=== PATIENT | female | born 1960 | race Caucasian/White ===

== ENCOUNTER 2017-03-27 10:11 | Emergency (ER) | payer OTHER ==
[~2017-03-27] VITALS: Ht 170.2 cm; Wt 72.6 kg
--- NOTE | 2017-03-27 10:42 | PHYS DOC ---
Past History Past Medical History: Endometriosis, High Cholesterol Past Surgical History: Other Smoking: Non-smoker Alcohol Use: None Drug Use: None Adult General Chief Complaint Chief Complaint: KNEE SWELLING HPI HPI 57-year-old female patient with history of varicose vein states she injured her left knee one week ago with mild edema and ecchymosis that getting force this morning and she is concern for possible blood clot or collapsing vein. Patient denies new injury, focal neuro deficit, fever and chills, shortness of breath, edema, recent immobilization, history of DVT and PE walking problem. Review of Systems Review of Systems Constitutional: Denies fever or chills [] Eyes: Denies change in visual acuity, redness, or eye pain [] HENT: Denies nasal congestion or sore throat [] Respiratory: Denies cough or shortness of breath [] Cardiovascular: No additional information not addressed in HPI [] GI: Denies abdominal pain, nausea, vomiting, bloody stools or diarrhea [] : Denies dysuria or hematuria [] Musculoskeletal: Denies back pain, reports joint pain [] Integument: Denies rash, reports ecchymoses[] Neurologic: Denies headache, focal weakness or sensory changes [] Endocrine: Denies polyuria or polydipsia [] All other systems were reviewed and found to be within normal limits, except as documented in this note. Allergies Allergies Allergies Coded Allergies Type Severity Reaction Last Updated Verified Sulfa (Sulfonamide Antibiotics) Allergy Unknown 03/27/17 Yes amoxicillin Allergy Unknown 03/27/17 Yes clavulanic acid Allergy Unknown 03/27/17 Yes Physical Exam Physical Exam Constitutional: Well developed, well nourished, no acute distress, non-toxic appearance, mildly anxious. [] HENT: Normocephalic, atraumatic, bilateral external ears normal, oropharynx moist, no oral exudates, nose normal. [] Eyes: PERRLA, EOMI, conjunctiva normal, no discharge. [] Neck: Normal range of motion, no tenderness, supple, no stridor. [] Cardiovascular:Heart rate regular rhythm, no murmur [] Lungs & Thorax: Bilateral breath sounds clear to auscultation []. [] Skin: Warm, dry, no erythema, no rash. [] Back: No tenderness, no CVA tenderness. [] Extremities: Left knee week 2 x 2 centimeter area of old contusion and edema without point of tenderness or focal neuro deficit, mild superficial varicose vein without acute bleeding Neurologic: Alert and oriented X 3, normal motor function, normal sensory function, no focal deficits noted. [] Psychologic: anxious, judgement normal, mood normal. [] Current Patient Data Vital Signs Vital Signs Date Time Temp Pulse Resp B/P (MAP) Pulse Ox O2 Delivery O2 Flow Rate FiO2 03/27/17 10:20 98.3 88 16 99 Room Air EKG EKG [] Radiology/Procedures Radiology/Procedures [] Course & Med Decision Making Course & Med Decision Making Evolution of patient in ER showed 57-year-old female patient with injury to left knee that getting force today. Patient had old ecchymosis and contusion without acute finding. Praveen wrap applied by [facility] and patient felt better. She was concern for possible blood clot and informed that she does not have blood clots at this time. Dragon Disclaimer Dragon Disclaimer This electronic medical record was generated, in whole or in part, using a voice recognition dictation system. Departure Departure: Impression: Primary Impression: Contusion of left knee Disposition: HOME, SELF-CARE (at 1041) Condition: STABLE Referrals: TIARA SCHMIDT (PCP) Patient Instructions: Contusion Additional Instructions: Apply ice on the affected area Follow-up with your primary care physician in 3-5 days Return to ER if not getting better SONU DORSEY MD Mar 27, 2017 10:41
[2017-03-27 10:46] VITALS: BP 127/78
== END 2017-03-27 10:50 | disposition home or self-care (01) ==
LOC: ER 10:11
DX: S80.02XA Contusion of left knee, initial encounter (principal); E78.00 Pure hypercholesterolemia, unspecified; Z88.2 Allergy status to sulfonamides; Z88.1 Allergy status to other antibiotic agents; X58.XXXA Exposure to other specified factors, initial encounter; Y93.89 Activity, other specified; Y99.8 Other external cause status; Y92.89 Other specified places as the place of occurrence of the external cause
CPT/HCPCS: 99282

== ENCOUNTER 2019-01-26 11:12 | Inpatient (IN) | payer OTHER ==
[~2019-01-26] VITALS: Ht 170.2 cm; Wt 69.7 kg
[2019-01-26 11:00] VITALS: BP 147/72
[2019-01-26 11:41] VITALS: BP_DIAS 72
[2019-01-26] MEDS ORDERED: [UNRECOGNIZED DRUG - REMARK] PO (11:53)
[2019-01-26 12:10] LABS: INFLUENZA A PATIENT POSITIVE (NEGATIVE); INFLUENZA B PATIENT NEGATIVE (NEGATIVE)
[2019-01-26] MEDS ORDERED: ZOLPIDEM 5 MG TABLET. PO PRN (12:15)
[2019-01-26] MEDS ORDERED: ACETAMINOPHEN 500 MG TABLET PO PRN (12:15)
[2019-01-26] MEDS ORDERED: MAG HYDROX/AL HYDROX/SIMETH 30 ML ORAL.SUSP PO PRN (12:15)
--- NOTE | 2019-01-26 12:32 | NUR ---
Pt arrived on at approximately 1057 via wheelchair for possible pneumonia and acute respiratory distress. Vital Signs 98.9, 147/72, pulse 91, RR 24-, O2 RA 95%. Pt denies any pain at this time, Pt family at bedside, droplet precautions in place. Swabbed pt for influenza, awaiting results. Bed in lowest position, call light within reach. 22 g IV placed SL. Pt complains of chest tightness and SOB, will continue to assess and treat as prescribed. Pt is up ad melissa, no hx of falls. Pt instructed to call for any assistance. Regular diet ordered. Full Code status.
[2019-01-26 12:39] LABS: BASO % 0 % (0-3); EOS % 0 % (0-3); HEMATOCRIT 40.9 % (36.0-47.0); HEMOGLOBIN 13.5 g/dL (12.0-15.5); LYMPH # 0.4 x10^3/uL (1.0-4.8); LYMPH % 6 % (24-48); MEAN CORPUSCULAR HEMOGLOBIN 30 pg (25-35); MEAN CORPUSCULAR HGB CONC 33 g/dL (31-37); MEAN CORPUSCULAR VOLUME 92 fL (79-100); MONO # 0.7 x10^3/uL (0.0-1.1); MONO % 11 % (0-9); NEUT # 5.4 x10^3uL (1.8-7.7); NEUT % 83 % (31-73); PLATELET COUNT 234 x10^3/uL (140-400); RED BLOOD COUNT 4.47 x10^6/uL (3.50-5.40); RED CELL DISTRIBUTION WIDTH 13.8 % (11.5-14.5); WHITE BLOOD COUNT 6.6 x10^3/uL (4.0-11.0)
[2019-01-26] MEDS: guaiFENesin DM 200MG/20MG 10 ML SYRUP PO PRN ×2 (12:47→22:09)
[2019-01-26] MEDS: IV 1/2 NORMAL SALINE 1,000 ML IV SCH (12:50)
[2019-01-26 12:53] LABS: ALBUMIN 3.4 g/dL (3.4-5.0); ALBUMIN/GLOBULIN RATIO 0.8 (1.0-1.7); CALCIUM 8.2 mg/dL (8.5-10.1); CREATININE 0.8 mg/dL (0.6-1.0); GFR 73.4; POTASSIUM 3.5 mmol/L (3.5-5.1); TOTAL BILIRUBIN 0.3 mg/dL (0.2-1.0); TOTAL PROTEIN 7.5 g/dL (6.4-8.2)
[2019-01-26] MEDS: ONDANSETRON ODT 4 MG TAB.RAPDIS PO PRN (14:18)
[2019-01-26] MEDS: methylPREDNISolone SOD SUCC PF 125 MG/2 ML VIAL. IV SCH ×2 (14:18→20:27)
[2019-01-26] MEDS: IPRATRPIUM/ALBUTEROL 0.5/2.5MG 3 ML NEBU. NEB SCH ×2 (15:04→20:23)
[2019-01-26] MEDS ORDERED: IOHEXOL 350 MG/ML 100 ML VIAL. IV ONE (15:15)
--- NOTE | 2019-01-26 15:32 | NUR ---
Pt positive for Influenza strand A, droplet precautions implemented, pt receiving meds per 's orders. Pt vomitted at 1400, gave PRN Zofran as prescribed.
--- NOTE | 2019-01-26 15:34 | EKG ---
[address] [address] Test Date: 2019-01-26 Test Time: 16:04:40 Pat Name: CHIDI CASTRO Department: Room: 111 A Gender: F Dopeman: : 1960 Requested By: DAGOBERTO BAL Order Number: [id number] Reading MD: Measurements Intervals [place] Rate: 86 P: 42 CT: 136 QRS: 40 QRSD: 94 T: 41 QT: 344 QTc: 414 Interpretive Statements SINUS RHYTHM QRS(T) CONTOUR ABNORMALITY CONSISTENT WITH ANTEROSEPTAL INFARCT PROBABLY OLD ABNORMAL ECG RI6.02 No previous ECG available for comparison
--- NOTE | 2019-01-26 15:52 | RAD ---
Abdominal ultrasound without comparison for elevated LFTs. Technique and findings: Real-time grayscale and color Doppler evaluation of the abdominal organs is performed. The IVC is patent. Visualized portions of the abdominal aorta are not aneurysmal. Portal vein is patent and hepatopedal. The liver measures 17.4 cm and is free of any focal parenchymal abnormalities. No intra or extrahepatic biliary ductal dilatation. The gallbladder is contracted and notable for shadowing gallstones. No gallbladder wall thickening or pericholecystic fluid. No sonographic Maldonado sign. Common bile duct measures 5 mm in diameter. Visualized portions the pancreas are grossly unremarkable. The pancreatic tail is not well seen. The right kidney measures 11.7 x 5.5 x 4.3 cm and the left measures 11.1 x 5.4 x 6.0 cm. There is no hydronephrosis or parenchymal abnormality involving either kidney. There is normal color flow to both kidneys. Spleen is normal in size and appearance. IMPRESSION: 1. Cholelithiasis without sonographic evidence of acute cholecystitis. Electronically signed by: Frederic Quintero MD (01/26/2019 3:50 PM) [facility]
[2019-01-26] MEDS ORDERED: SIMV20TA18 PO (15:53)
[2019-01-26 16:07] VITALS: BP 115/65
--- NOTE | 2019-01-26 16:20 | RAD ---
PA and lateral chest x-ray without comparison for shortness of breath. FINDINGS: There is suggestion of an ill-defined vague retrocardiac posterior infiltrate on lateral projection. Lungs are otherwise clear. Heart size within normal limits. No soft tissue or osseous abnormalities. IMPRESSION: 1. Possible retrocardiac infiltrate concerning for pneumonia. Electronically signed by: Frederic Quintero MD (01/26/2019 4:17 PM) [facility]
[2019-01-26 19:40] VITALS: BP 106/62
[2019-01-26] MEDS: SIMVASTATIN 20 MG TABLET PO SCH (20:27)
[2019-01-26] MEDS: OSELTAMIVIR 75 MG CAPSULE PO SCH (20:27)
--- NOTE | 2019-01-26 22:08 | RAD ---
CT arteriogram of the chest. HISTORY: Short of breath, positive d-dimer CT arteriogram of the chest was done using 90 mL Omnipaque 350 contrast. Sagittal and coronal MIP images were reconstructed. Thyroid is homogeneous. There is no mediastinal adenopathy or pleural effusion. Visualized portions the liver and spleen are unremarkable. There are calcified gallstones in the gallbladder. Adrenal glands are normal. There is atelectasis or infiltrates in both lower lobes. Contrast opacification the pulmonary vessels is not optimal. There is no definite pulmonary embolus. There is motion artifact from respiration in the lung bases. There is a 5 mm pulmonary nodule in the right middle lobe. IMPRESSION: 1. Negative for a pulmonary embolus. 2. 5 mm pulmonary nodule in the right middle lobe, Fleischner Society guidelines recommend an optional one-year follow-up for high risk individuals. 3. Atelectasis or infiltrates in both lower lobes. PQRS Compliance Statement: One or more of the following individualized dose reduction techniques were utilized for this examination: 1. Automated exposure control 2. Adjustment of the mA and/or kV according to patient size 3. Use of iterative reconstruction technique Electronically signed by: Jose Alberto Christine MD (01/26/2019 10:05 PM) [facility]
[2019-01-26 22:45] VITALS: BP 94/49
[2019-01-27] MEDS: IV 1/2 NORMAL SALINE 1,000 ML IV SCH (02:05)
[2019-01-27 02:09] VITALS: BP 96/50
[2019-01-27 05:28] VITALS: BP 96/57
[2019-01-27] MEDS: IPRATRPIUM/ALBUTEROL 0.5/2.5MG 3 ML NEBU. NEB SCH ×4 (05:29→20:15)
[2019-01-27] MEDS: guaiFENesin DM 200MG/20MG 10 ML SYRUP PO PRN ×2 (05:53→12:29)
[2019-01-27] MEDS: OSELTAMIVIR 75 MG CAPSULE PO SCH ×2 (08:13→21:00)
[2019-01-27] MEDS: methylPREDNISolone SOD SUCC PF 125 MG/2 ML VIAL. IV SCH ×2 (08:14→21:00)
[2019-01-27 08:15] VITALS: BP 183/114
[2019-01-27 10:36] LABS: ALBUMIN 3.1 g/dL (3.4-5.0); DIRECT BILIRUBIN 0.1 mg/dL (0.0-0.2); TOTAL BILIRUBIN 0.2 mg/dL (0.2-1.0); TOTAL PROTEIN 7.3 g/dL (6.4-8.2)
[2019-01-27 11:00] VITALS: BP 124/62
[2019-01-27 15:00] VITALS: BP 120/70
[2019-01-27] MEDS ORDERED: BENZOCAINE/MENTHOL LOZNGE 18'S BOX. PO PRN (16:15)
[2019-01-27] MEDS: DOCOSANOL 10% TP SCH ×2 (18:00→22:00)
[2019-01-27 19:30] VITALS: BP 136/75
[2019-01-27] MEDS: SIMVASTATIN 20 MG TABLET PO SCH (21:00)
[2019-01-27] MEDS: LACTOBACILLUS RHAMNOSUS GG 1 CAPSULE. PO SCH (21:00)
[2019-01-27] MEDS: ONDANSETRON ODT 4 MG TAB.RAPDIS PO PRN (22:15)
[2019-01-27] MEDS: ZOLPIDEM 5 MG TABLET. PO PRN ×2 (22:40→23:42)
[2019-01-28 05:20] VITALS: BP 96/53
[2019-01-28] MEDS: DOCOSANOL 10% TP SCH (06:00)
[2019-01-28] MEDS: IPRATRPIUM/ALBUTEROL 0.5/2.5MG 3 ML NEBU. NEB SCH (06:05)
[2019-01-28] MEDS: LACTOBACILLUS RHAMNOSUS GG 1 CAPSULE. PO SCH (07:58)
[2019-01-28] MEDS: OSELTAMIVIR 75 MG CAPSULE PO SCH (07:58)
[2019-01-28] MEDS: methylPREDNISolone SOD SUCC PF 125 MG/2 ML VIAL. IV SCH (08:00)
[2019-01-28] MEDS: guaiFENesin DM 200MG/20MG 10 ML SYRUP PO PRN (08:16)
[2019-01-28 08:27] LABS: BASO % 0 % (0-3); EOS % 0 % (0-3); HEMATOCRIT 43.4 % (36.0-47.0); HEMOGLOBIN 14.3 g/dL (12.0-15.5); LYMPH % 12 % (24-48); MEAN CORPUSCULAR HEMOGLOBIN 30 pg (25-35); MEAN CORPUSCULAR HGB CONC 33 g/dL (31-37); MEAN CORPUSCULAR VOLUME 92 fL (79-100); MONO # 0.6 x10^3/uL (0.0-1.1); MONO % 7 % (0-9); NEUT # 6.9 x10^3uL (1.8-7.7); NEUT % 81 % (31-73); PLATELET COUNT 286 x10^3/uL (140-400); RED BLOOD COUNT 4.73 x10^6/uL (3.50-5.40); RED CELL DISTRIBUTION WIDTH 14.3 % (11.5-14.5); WHITE BLOOD COUNT 8.5 x10^3/uL (4.0-11.0)
--- NOTE | 2019-01-28 08:28 | NUR ---
IP: patient requires droplet precautions until treatment for 5 days and no fever x 24 hours, whichever is longer.
[2019-01-28 08:42] LABS: ALBUMIN 3.1 g/dL (3.4-5.0); ALBUMIN/GLOBULIN RATIO 0.7 (1.0-1.7); CALCIUM 8.7 mg/dL (8.5-10.1); CREATININE 0.8 mg/dL (0.6-1.0); GFR 73.4; POTASSIUM 4.2 mmol/L (3.5-5.1); TOTAL BILIRUBIN 0.2 mg/dL (0.2-1.0); TOTAL PROTEIN 7.3 g/dL (6.4-8.2)
[2019-01-28] MEDS ORDERED: AZITHROMYCIN 250 MG TABLET. PO SCH (09:00)
--- NOTE | 2019-01-28 09:59 | PN ---
DATE: SUBJECTIVE: A 59-year-old female came in with multiple medical problems including influenza, pneumonia, elevated liver enzymes, elevated D-dimer, generalized weakness. The patient also been having some diarrhea. We will get C. diff on her for that. In any case, the patient's blood pressure did drop down to 96/57, but she has been resting more, respiratory rate 20, pulse 70, afebrile. She has been encouraged to get up and move around. She is mobile that is important. She is moving around. OBJECTIVE: GENERAL: The patient otherwise alert and oriented. LUNGS: Diminished throughout, poor movement of air, but basically clear. There are some coarse breath sounds. She was having difficulty breathing when she was in the office marked asthmatic condition, low oxygen saturation. Otherwise, the patient is resting fairly comfortably, making fairly good progress there. CARDIOVASCULAR: Regular sinus rhythm. ABDOMEN: Soft, nontender. EXTREMITIES: No clubbing, cyanosis or edema. NEUROLOGIC: Intact. The patient continues to be monitored carefully. Continue on IV antibiotic therapy, antiflu medication. She is on isolation and make further evaluation. PLAN: As above. Continue to monitor and make further evaluation on her as indicated. IMPRESSION: Influenza A, diarrhea, elevated liver enzymes, dehydration, acute exacerbation of asthma, cholelithiasis, mild protein malnutrition. DAGOBERTO BAL MD DR: LEXA/rohan JOB#: [id number] / [id number]
[2019-01-28] MEDS ORDERED: ONDA4TAB12 PO (10:08)
[2019-01-28] MEDS ORDERED: DOCO2CRE TP (10:08)
[2019-01-28] MEDS ORDERED: LACT1CAP19 PO (10:08)
[2019-01-28] MEDS ORDERED: LEVO500T59 PO (10:08)
[2019-01-28] MEDS ORDERED: ZOLP5TAB PO (10:08)
[2019-01-28] MEDS ORDERED: MAG30ORA2 PO (10:08)
[2019-01-28] MEDS ORDERED: IPRA3AMP29 NEB (10:08)
[2019-01-28] MEDS ORDERED: GUAI5SYR PO (10:08)
[2019-01-28] MEDS ORDERED: OSEL75CA PO (10:08)
[2019-01-28] MEDS ORDERED: ACET500T68 PO (10:08)
[2019-01-28] MEDS ORDERED: BENZ1LOZ4 PO (10:08)
[2019-01-28] MEDS ORDERED: METH4TAB2 PO (10:25)
--- NOTE | 2019-01-28 10:43 | NUR ---
NURSING NOTE DISCHARGE PT HAS BEEN DISCHARGED HOME VIA WHEELCHAIR ACCOMPANIED BY AT 1043. PT GIVEN WRITTEN AND VERBAL DISCHARGE INSTRUCTIONS. SCRIPTS FAXED TO PHARMACY AND HAND SCRIPT FOR AMBIEN GIVEN TO PT. PT INSTRUCTED TO FOLLOW UP WITH PCP IN 7-10 DAYS OR SOONER IF NEEDED. PT MAY USE OTC COLD SORE MEDICATION PER DR BAL. ALLAN ELDRIDGE.
== END 2019-01-28 10:45 | disposition home or self-care (01) | DRG 202 ==
LOC: 1 SOUTH 11:12
PROVIDERS: ADMIT Family Medicine; ATTEND Family Medicine
DX: J45.901 Unspecified asthma with (acute) exacerbation (principal); J10.00 Influenza due to other identified influenza virus with unspecified type of pneumonia; E44.1 Mild protein-calorie malnutrition; E86.0 Dehydration; K80.20 Calculus of gallbladder without cholecystitis without obstruction; Z68.24 Body mass index [BMI] 24.0-24.9, adult
CPT/HCPCS: 36415; 71046; 71275; 76700; 80053; 80076; 82550; 83605; 84484; 85025; 85379; 86644; 86645; 86705; 86709; 86803; 87340; 87804; 93005; 94640; J0456; J1956; J2930; J7030; J7620; Q0162; Q9967

== ENCOUNTER 2020-01-18 19:02 | Emergency (ER) | payer OTHER ==
[~2020-01-18] VITALS: Ht 170.2 cm; Wt 77.8 kg
[~2020-01-18 19:02] MED LIST: ACET500T68 PO; BENZ1LOZ4 PO; DOCO2CRE TP; GUAI5SYR PO; IPRA3AMP29 NEB; LACT1CAP19 PO; LEVO500T59 PO; MAG30ORA2 PO; METH4TAB2 PO; ONDA4TAB12 PO; OSEL75CA PO; SIMV20TA18 PO; ZOLP5TAB PO; [UNRECOGNIZED DRUG - REMARK] PO
[2020-01-18] MEDS ORDERED: FAMOTIDINE 20 MG/2 ML VIAL ONE (19:15)
[2020-01-18] MEDS ORDERED: ONDANSETRON PF 4 MG/2 ML VIAL. ONE (19:15)
[2020-01-18] MEDS ORDERED: ALBUTEROL SULFATE 8GM INHALER. INH ONE (19:30)
[2020-01-18] MEDS ORDERED: IV RINGERS SOLUTION,LACTATED 1,000 ML IV SCH (19:30)
--- NOTE | 2020-01-18 19:42 | PHYS DOC ---
Past History Past Medical History: Endometriosis, High Cholesterol, Other Past Surgical History: Other Smoking: Non-smoker Alcohol Use: None Drug Use: None General Adult EDM: Chief Complaint: COUGH HPI: HPI: ".. I ve been sick for last 2 days... Started with a nonproductive cough with fever and chills. Then I started having nausea and vomiting and now having diarrhea.... 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 Today patient has had 5 vomiting episodes and 5 diarrheas. 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 Patient did have a flu vaccination this season. Has had Pneumovax. Has not traveled outside the [place] area. Patient normally follows with Dr. Bal. Review of Systems: Review of Systems: Constitutional: History fever or chills Eyes: Denies change in visual acuity HENT: Denies nasal congestion or sore throat Respiratory: History nonproductive cough and wheezing Cardiovascular: Denies chest pain or edema GI: Complains of generalized abdominal pain, nausea, vomiting, and diarrhea : Denies dysuria Musculoskeletal: Complains of generalized arthralgia and myalgia Integument: Denies rash Neurologic: Denies headache, focal weakness or sensory changes Endocrine: Denies polyuria or polydipsia Lymphatic: Denies swollen glands Psychiatric: Denies depression or anxiety Family History: Family History: Noncontributory to presentation Current Medications: Current Meds: Current Medications Medications (Trade) Dose Ordered Sig/L[place]ell Start Time Stop Time Status Last Admin Dose Admin Albuterol Sulfate (Ventolin Hfa Inhaler) 2 puff 1X ONCE 01/18/20 19:30 01/18/20 19:31 DC Famotidine (Pepcid Vial) 20 mg STK-MED ONCE 01/18/20 19:15 01/18/20 19:15 DC Lactated Ringer's 1,000 ml @ 100 mls/hr Q10H 01/18/20 19:30 01/19/20 05:29 Ondansetron HCl (Zofran) 4 mg STK-MED ONCE 12/5/20 19:15 01/18/20 19:15 DC Allergies: Allergies: Allergies Coded Allergies Type Severity Reaction Last Updated Verified Sulfa (Sulfonamide Antibiotics) Allergy Unknown 03/27/17 Yes amoxicillin Allergy Unknown 03/27/17 Yes clavulanic acid Allergy Unknown 03/27/17 Yes Physical Exam: PE: Constitutional: Moderate acute distress, ill in appearance. [] HENT: Normocephalic, atraumatic, bilateral external ears normal, oropharynx dry, mild injection posterior pharynx no oral exudates, nose swollen turbinates clear rhinorrhea Eyes: PERRLA, EOMI, conjunctiva normal, no discharge. [] Neck: Normal range of motion, no tenderness, supple, no stridor. [] Cardiovascular:Heart rate regular rhythm, no murmur [] Lungs & Thorax: Bilateral breath sounds equal apex with scattered wheezes on auscultation []. Patient appears to have a nagging cough, no focal areas r ebound Abdomen: Bowel sounds hyperactive, soft, mild right upper quadrant tenderness, no masses, no pulsatile masses. No true rebound Skin: Warm, dry, no erythema, no rash. Poor turgor Back: No tenderness, no CVA tenderness. [] Extremities: No tenderness, no cyanosis, no clubbing, ROM intact, no edema. [] No psoas sign. No cording. Neurologic: Alert and oriented X 3, normal motor function, normal sensory function, no focal deficits noted. [] Psychologic: Affect anxious, judgement normal, mood normal. [] Current Patient Data: Labs: EKG: EKG: My interpretation EKG shows a sinus rhythm at 67 bpm. Some nonspecific contour changes in the anterior septal region. But no findings of acute STEMI of contralateral changes. [] Radiology/Procedures: Radiology/Procedures: [][place] [address] IMAGING REPORT Signed PATIENT: CHIDI CASTRO ACCOUNT: [id number] : 1960 LOCATION: ER AGE: 59 SEX: F EXAM STATUS: REG ER ORD. PHYSICIAN: DANIEL EUBANKS MD REASON: cp, dyspnea, abdomen pain Omni 350 100cc PROCEDURE: CT ANGIO CHEST W ABD PEL W/ Exam: CT of chest, abdomen and pelvis with contrast INDICATION: Chest pain, dyspnea, abdominal pain TECHNIQUE: Sequential axial images through the chest, abdomen and pelvis obtained following the administration of 90 mL of Omni 350 IV contrast. Sagittal and coronal reformatted images were reconstructed from the axial data and reviewed. Comparisons: 01/26/2019 FINDINGS: Visualized portions of the thyroid are unremarkable. No enlarged mediastinal lymph nodes are identified. Heart size is normal. No pericardial effusion. Thoracic aorta has a normal course and caliber. Pulmonary artery is not enlarged. No pulmonary embolus identified within the main, lobar or segmental pulmonary arteries. Airways are patent. No consolidation or pneumothorax. Strandy opacities at dependent portion lungs likely representing atelectasis. No suspicious lung nodules. No pleural effusion or thickening. Liver, spleen, pancreas and adrenals are unremarkable. Numerous gallstones are noted within the gallbladder. No perinephric inflammation or hydronephrosis. No renal or ureteral calculi are identified. Bladder is decompressed not well evaluated. Uterus not enlarged. No abnormal adnexal mass. Diverticulosis is noted in the sigmoid colon without evidence of acute diverticulitis. Remainder large and small bowel are unremarkable. Appendix is nonidentified. No free intra-abdominal air or fluid. No obstruction. Abdominal aorta has a normal course and caliber. Abdominal vasculature is patent. No enlarged intra-abdominal lymph nodes are identified. No suspicious osseous lesions or acute fractures. IMPRESSION: 1. No pulmonary was identified within the main, lobar or segmental pulmonary arteries. 2. Diverticulosis without evidence of acute diverticulitis. 3. Cholelithiasis. 4. No acute process identified within the abdomen or pelvis. Exposure: One or more of the following in the visualized dose reduction techniques were utilized for this examination: 1. Automated exposure control 2. Adjustment of the MA and/or KV according to patient size 3. Use of iterative of reconstructive technique Electronically signed by: Homa Klein MD (01/18/2020 11:03 PM) [facility] DICTATED AND SIGNED BY: HOMA KLEIN MD DATE: 01/18/20 [id number] CC: DAGOBERTO BAL MD; DANIEL EUBANKS MD ~MTH0 0 Heart Score: HEART Score for Chest Pain: HEART Score for Chest Pain Response (Comments) Value History Slighlty/Non-Suspicious 0 ECG Nonspecific Repolarizatio 1 Age >45 - < 65 1 Risk Factors 1 or 2 Risk Factors 1 Troponin < Normal Limit 0 Total 3 Risk Factors: Risk Factors: DM, Current or recent (<one month) smoker, HTN, HLP, family history of CAD, obesity. Risk Scores: Score 0 - 3: 2.5% MACE over next 6 weeks - Discharge Home Score 4 - 6: 20.3% MACE over next 6 weeks - Admit for Clinical Observation Score 7 - 10: 72.7% MACE over next 6 weeks - Early Invasive Strategies Course & Med Decision Making: Course & Med Decision Making Pertinent Labs and Imaging studies reviewed. (See chart for details) Pt. to self isolate x10 days. Use MDI 2 puffs 4 times a day. Take Tylenol and ibuprofen as needed for discomfort. Take Eliquis 2.5 mg twice a day. Follow-up with primary care. Wear a mask anytime when outside of home. Mask must cover nose and mouth. Patient review ED work-up with primary care. Consider follow- up for evaluation of gallstones and possible history of biliary colic. Take Tylenol ibuprofen for pain. For marked pain may take Vicoprofen. Cosider COVID testing prior return to work to make sure she does not continue to spread COVID. Impression: 1. Viral Syndrome- suspect COVID 2. Bronchitis 3. Elevated D- dimer 1.21 4. Elevated Lipase 778 5. Gall stones-biliary colic [] Thor Disclaimer: Thor Disclaimer: This electronic medical record was generated, in whole or in part, using a voice recognition dictation system. Departure Departure: Referrals: DAGOBERTO BAL MD (PCP) Scripts Hydrocodone/Ibuprofen (HYDROCODONE-IBUPROFEN 7.5-200 ) 1 Each Tablet 1 TAB PO PRN Q6HRS PRN for PAIN, #30 TAB 0 Refills Prov: DANIEL EUBANKS MD 01/19/20 Azithromycin (ZITHROMAX) 250 Mg Tablet 250 MG PO DAILY for ANTI-BIOTIC for 5 Days, #5 TAB 0 Refills Prov: DANIEL EUBANKS MD 01/19/20 Ondansetron Hcl (ZOFRAN) 4 Mg Tablet 8 MG PO QIDPRN PRN for NAUSEA/VOMITING, #30 TAB Prov: DANIEL EUBANKS MD 01/19/20 Apixaban (ELIQUIS) 2.5 Mg Tablet 2.5 MG PO BID for DVT prophylaxis for 30 Days, #60 TAB Prov: DANIEL EUBANKS MD 01/19/20 Thor Disclaimer This chart was dictated in whole or in part using Voice Recognition software in a busy, high-work load, and often noisy Emergency Department environment. It may contain unintended and wholly unrecognized errors or omissions. Dragon Disclaimer This chart was dictated in whole or in part using Voice Recognition software in a busy, high-work load, and often noisy Emergency Department environment. It may contain unintended and wholly unrecognized errors or omissions. Dragon Disclaimer This chart was dictated in whole or in part using Voice Recognition software in a busy, high-work load, and often noisy Emergency Department environment. It may contain unintended and wholly unrecognized errors or omissions. DANIEL EUBANKS MD Jan 18, 2020 19:42
[2020-01-18] MEDS ORDERED: ONDANSETRON PF 4 MG/2 ML VIAL. IVP ONE (19:45)
[2020-01-18] MEDS ORDERED: FAMOTIDINE 20 MG/2 ML VIAL IVP ONE (19:45)
[2020-01-18] MEDS ORDERED: AZITHROMYCIN 250 MG TABLET. PO ONE ×2 (19:45→22:30)
--- NOTE | 2020-01-18 20:02 | RAD ---
Exam: Chest one view INDICATION: Cough TECHNIQUE: Frontal view of the chest Comparisons: 01/26/2019 FINDINGS: The cardiomediastinal silhouette and pulmonary vessels are within normal limits. The lung and pleural spaces are clear. IMPRESSION: No acute cardiopulmonary process. Electronically signed by: Homa Crow MD (01/18/2020 7:59 PM) [facility]
[2020-01-18 20:11] LABS: BASO # 0.1 x10^3/uL (0.0-0.2); BASO % 1 % (0-3); EOS # 0.1 x10^3/uL (0.0-0.7); EOS % 1 % (0-3); HEMATOCRIT 42.3 % (36.0-47.0); LYMPH # 1.6 x10^3/uL (1.0-4.8); LYMPH % 19 % (24-48); MEAN CORPUSCULAR HEMOGLOBIN 30 pg (25-35); MEAN CORPUSCULAR HGB CONC 33 g/dL (31-37); MEAN CORPUSCULAR VOLUME 91 fL (79-100); MONO # 0.6 x10^3/uL (0.0-1.1); MONO % 7 % (0-9); NEUT # 6.1 x10^3uL (1.8-7.7); NEUT % 72 % (31-73); PLATELET COUNT 366 x10^3/uL (140-400); RED BLOOD COUNT 4.65 x10^6/uL (3.50-5.40); RED CELL DISTRIBUTION WIDTH 13.7 % (11.5-14.5); WHITE BLOOD COUNT 8.5 x10^3/uL (4.0-11.0)
[2020-01-18 20:16] LABS: CALCIUM 9.2 mg/dL (8.5-10.1); CREATININE 0.9 mg/dL (0.6-1.0); GFR 64.1; POTASSIUM 3.6 mmol/L (3.5-5.1)
[2020-01-18 20:28] LABS: ALBUMIN 3.5 g/dL (3.4-5.0); DIRECT BILIRUBIN 0.1 mg/dL (0.0-0.2); MAGNESIUM 2.2 mg/dL (1.8-2.4); TOTAL BILIRUBIN 0.4 mg/dL (0.2-1.0); TOTAL PROTEIN 7.6 g/dL (6.4-8.2)
[2020-01-18 20:43] LABS: INFLUENZA A PATIENT NEGATIVE (NEGATIVE); INFLUENZA B PATIENT NEGATIVE (NEGATIVE)
[2020-01-18 21:57] LABS: BILIRUBIN,URINE NEG (NEG); CLARITY,URINE CLEAR; COLOR,URINE COLORLESS; GLUCOSE,URINE NEG (NEG); NITRITE,URINE NEG (NEG); UROBILINOGEN,URINE 0.2 mg/dL (0.2 mg/dL)
[2020-01-18 21:58] LABS: BACTERIA,URINE 0 /HPF (0-FEW); SQUAMOUS EPITHELIAL CELL,UR FEW /LPF
[2020-01-18] MEDS ORDERED: ANTI-COAG MONITOR BY PHARMACY. MC PRN (22:15)
[2020-01-18] MEDS ORDERED: CONTRAST GIVEN. MC PRN (22:15)
[2020-01-18 22:23] VITALS: BP 122/74
[2020-01-18] MEDS ORDERED: methylPREDNISolone SOD SUCC PF 125 MG/2 ML VIAL. IV ONE (22:30)
[2020-01-18] MEDS ORDERED: IOHEXOL 350 MG/ML 100 ML VIAL. IV ONE (23:00)
[2020-01-18] MEDS ORDERED: APIXABAN 2.5 MG TABLET PO SCH (23:00)
--- NOTE | 2020-01-18 23:06 | RAD ---
Exam: CT of chest, abdomen and pelvis with contrast INDICATION: Chest pain, dyspnea, abdominal pain TECHNIQUE: Sequential axial images through the chest, abdomen and pelvis obtained following the administration of 90 mL of Omni 350 IV contrast. Sagittal and coronal reformatted images were reconstructed from the axial data and reviewed. Comparisons: 01/26/2019 FINDINGS: Visualized portions of the thyroid are unremarkable. No enlarged mediastinal lymph nodes are identified. Heart size is normal. No pericardial effusion. Thoracic aorta has a normal course and caliber. Pulmonary artery is not enlarged. No pulmonary embolus identified within the main, lobar or segmental pulmonary arteries. Airways are patent. No consolidation or pneumothorax. Strandy opacities at dependent portion lungs likely representing atelectasis. No suspicious lung nodules. No pleural effusion or thickening. Liver, spleen, pancreas and adrenals are unremarkable. Numerous gallstones are noted within the gallbladder. No perinephric inflammation or hydronephrosis. No renal or ureteral calculi are identified. Bladder is decompressed not well evaluated. Uterus not enlarged. No abnormal adnexal mass. Diverticulosis is noted in the sigmoid colon without evidence of acute diverticulitis. Remainder large and small bowel are unremarkable. Appendix is nonidentified. No free intra-abdominal air or fluid. No obstruction. Abdominal aorta has a normal course and caliber. Abdominal vasculature is patent. No enlarged intra-abdominal lymph nodes are identified. No suspicious osseous lesions or acute fractures. IMPRESSION: 1. No pulmonary was identified within the main, lobar or segmental pulmonary arteries. 2. Diverticulosis without evidence of acute diverticulitis. 3. Cholelithiasis. 4. No acute process identified within the abdomen or pelvis. Exposure: One or more of the following in the visualized dose reduction techniques were utilized for this examination: 1. Automated exposure control 2. Adjustment of the MA and/or KV according to patient size 3. Use of iterative of reconstructive technique Electronically signed by: Homa Crow MD (01/18/2020 11:03 PM) [facility]
[2020-01-19] MEDS ORDERED: AZIT250T PO (00:11)
[2020-01-19] MEDS ORDERED: ONDA4TAB7 PO (00:11)
[2020-01-19] MEDS ORDERED: APIX2.5T PO (00:11)
[2020-01-19] MEDS ORDERED: HYDR-1179 PO (00:11)
[2020-01-19 11:22] LABS: THYROID STIM HORMONE (TSH) 1.564 uIU/mL (0.358-3.740)
--- NOTE | 2020-01-20 08:44 | EKG ---
[address] [address] Test Date: 2020-01-18 Test Time: 20:16:12 Pat Name: CHIDI CASTRO Department: Room: Gender: F Vault Person: : 1960 Requested By: DANIEL EUBANKS Order Number: [id number] Reading MD: Measurements Intervals [place] Rate: 67 P: 54 SC: 156 QRS: 35 QRSD: 84 T: 31 QT: 400 QTc: 426 Interpretive Statements SINUS RHYTHM QRS(T) CONTOUR ABNORMALITY CONSISTENT WITH ANTEROSEPTAL INFARCT AGE UNDETERMINED ABNORMAL ECG RI6.02 No previous ECG available for comparison
== END 2020-01-19 00:35 | disposition home or self-care (01) ==
LOC: ER 19:02
DX: B34.9 Viral infection, unspecified (principal); J40 Bronchitis, not specified as acute or chronic; R79.1 Abnormal coagulation profile; R74.8 Abnormal levels of other serum enzymes; K80.20 Calculus of gallbladder without cholecystitis without obstruction; E78.00 Pure hypercholesterolemia, unspecified; Z88.2 Allergy status to sulfonamides; Z88.1 Allergy status to other antibiotic agents
CPT/HCPCS: 36415; 71045; 71275; 74177; 80048; 80061; 80076; 81001; 82550; 83690; 83735; 84443; 84484; 85025; 85379; 85610; 85730; 87070; 87086; 87804; 87880; 94640; 96361; 96374; 96375; 99285; J0456; J2405; J2930; J3490; J7120; J7613; Q9967; 93005; 94664